=== PATIENT | male | born 1960 | race Caucasian/White ===

== ENCOUNTER 2021-12-24 05:45 | Day surgery (SDC) | payer BC ==
[~2021-12-24] VITALS: Ht 193 cm; Wt 102.1 kg
[2021-12-24] MEDS ORDERED: CEFAZOLIN SOD 2 GM in D5W 50 ML IV ONE (07:00)
[2021-12-24] MEDS ORDERED: IBUPROFEN 600 MG TABLET PO ONE (09:45)
[2021-12-24] MEDS ORDERED: ONDANSETRON HCL 4 MG/2 ML VIAL IVP PRN (09:45)
[2021-12-24] MEDS ORDERED: HYDROmorphone 1 MG/ML INJ. CARTRIDGE IVP PRN (09:45)
[2021-12-24] MEDS ORDERED: KETOROLAC TROMETHAMINE 30 MG VIAL IVP PRN (09:45)
[2021-12-24] MEDS ORDERED: BUPIVACAINE /EPINEPHRINE/PF 0.5% 30 ML VIAL INJ ONE (10:15)
[2021-12-24] MEDS ORDERED: HYDROmorphone 2 MG/ML VIAL ONE (10:15)
[2021-12-24] MEDS ORDERED: DEXAMETHASONE SOD PHOSPHATE 4 MG/ML VIAL ONE (10:15)
[2021-12-24] MEDS ORDERED: LR 1,000 ML IV.SOLN IV ONE (10:15)
[2021-12-24] MEDS ORDERED: ONDANSETRON HCL 4 MG/2 ML VIAL ONE (10:15)
[2021-12-24] MEDS ORDERED: SUCCINYLCHOLINE CHLORIDE 20 MG/ML(QUELICIN) ONE (10:15)
[2021-12-24] MEDS ORDERED: MIDAZOLAM HCL 5 MG/ML VIAL (VERSED) IV ONE (10:15)
[2021-12-24] MEDS ORDERED: SEVOFLURANE 15 MIN GAS INH ONE (10:15)
[2021-12-24] MEDS ORDERED: ROCURONIUM BROMIDE 10 MG/ML (ZEMURON) ONE (10:15)
[2021-12-24 14:31] VITALS: BP_SYST 115
== END 2021-12-24 12:50 | disposition home or self-care (01) ==
LOC: SDS 05:45
PROVIDERS: ATTEND Surgery
DX: K40.90 Unilateral inguinal hernia, without obstruction or gangrene, not specified as recurrent (principal); K42.9 Umbilical hernia without obstruction or gangrene; K21.9 Gastro-esophageal reflux disease without esophagitis; E78.5 Hyperlipidemia, unspecified; E66.3 Overweight; Z79.899 Other long term (current) drug therapy
CPT/HCPCS: 36415; 49650; 49652; 87426; 88302; C1781; J0330; J0690; J1100; J1170; J2250; J2405; J3490; J7060; J7120; S2900; 88304